=== PATIENT | female | born 1985 | race Two or more races ===

== ENCOUNTER 2020-01-02 15:49 | Emergency (ER) | payer OTHER ==
[~2020-01-02] VITALS: Ht 167.6 cm; Wt 81.8 kg
[2020-01-02 16:39] LABS: BASOPHILS % (AUTO) 0.3 % (0.0-2.0); EOSINOPHILS % (AUTO) 0.1 % (1.0-6.0); MEAN CORPUSCULAR HEMOGLOBIN 30.7 pg (26.0-34.0); MEAN CORPUSCULAR HGB CONC 35.1 G/dL (31.0-37.0); MEAN CORPUSCULAR VOLUME 87 fL (80-100); MONOCYTES # (AUTO) 0.3 K/uL (0.1-1.0); MONOCYTES % (AUTO) 8.7 % (2.0-9.0); NEUTROPHILS # (AUTO) 2.4 K/uL (1.8-7.7); NEUTROPHILS % (AUTO) 64.9 % (40.0-70.0); PLATELET COUNT (AUTO) 180 K/uL (150-450); RED BLOOD CELL COUNT(AUTO) 4.58 MIL/uL (4.00-5.20); RED CELL DISTRIBUTION WIDTH 13.4 % (11.5-14.5)
[2020-01-02 16:47] LABS: ANION GAP 10 mmol/L (8-16); CALCIUM, TOTAL 8.8 mg/dL (8.8-10.5); CARBON DIOXIDE 24 mmol/L (22-29); CHLORIDE 94 mmol/L (98-107); CREATININE 0.73 mg/dL (0.60-1.30); GLOMERULAR FILTR. RATE CALC > 60 mL/min (>60); GLUCOSE,RANDOM 108 mg/dL (70-110); POTASSIUM 3.6 mmol/L (3.5-5.1); SODIUM SERUM 128 mmol/L (136-145); UREA NITROGEN, BLOOD 6 mg/dL (7-18)
[2020-01-02 17:02] LABS: ALANINE AMINOTRANSFERASE 23 U/L (12-78); ALBUMIN 3.7 g/dL (3.4-5.0); ALKALINE PHOSPHATASE 63 U/L (46-116); ASPARTATE AMINOTRANSFERASE 19 U/L (15-37); BILIRUBIN,TOTAL 0.4 mg/dL (0.1-1.0); HCG,QUANTITATIVE < 1 mIU/mL (0-6); THYROID STIMULATING HORMONE 2.26 uIU/mL (0.36-3.74); TOTAL PROTEIN, SERUM 8.1 g/dL (6.4-8.2)
[2020-01-02] MEDS ORDERED: DEXAMETHASONE 4 MG TABLET PO ONE (17:15)
[2020-01-02] MEDS ORDERED: AZITHROMYCIN 500 MG TABLET PO ONE (17:15)
[2020-01-02 18:37] VITALS: BP 103/62
== END 2020-01-02 18:43 | disposition home or self-care (01) ==
LOC: EMS 15:49
DX: U07.1 COVID-19 (principal); J12.89 Other viral pneumonia; F41.9 Anxiety disorder, unspecified
CPT/HCPCS: 36415; 71045; 80053; 84443; 84484; 84702; 85025; 93005; 99285; J8540; U0003

== ENCOUNTER 2020-01-07 23:54 | Emergency (ER) | payer OTHER | END 2020-01-08 00:23 | disposition left against medical advice (07) | LOC: EMS 23:56 | DX: Z03.818 Encounter for observation for suspected exposure to other biological agents ruled out (principal); F41.9 Anxiety disorder, unspecified | CPT/HCPCS: Z7502 ==